=== PATIENT | female | born 2005 | race Caucasian/White ===

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

== ENCOUNTER 2025-01-01 21:45 | Emergency (ER) | payer OTHER ==
[~2025-01-01] VITALS: Ht 165.1 cm; Wt 113.4 kg
[~2025-01-01 21:45] MED LIST changes: +Phenergan25 MG PO
[2025-01-01] MEDS ORDERED: SODIUM CHLORIDE 0.9% 500 ML IV ONE (22:10)
[2025-01-01] MEDS ORDERED: Prochlorperazine Edisylate 10 MG/2 ML VIAL IV ONE (22:10)
[2025-01-01 22:46] LABS: BASO % 0.3 % (0.0-1.0); EOS # 0.1 10*3/uL (0.0-0.4); EOS % 1.1 % (1.0-4.0); HEMATOCRIT 44.8 % (37.0-47.0); MEAN CELL VOLUME 85.8 fl (81.0-99.0); MEAN CORPUSCULAR HGB 28.5 pg (27.0-31.0); MEAN CORPUSCULAR HGB CONC 33.3 g/dl (33.0-37.0); MEAN PLATELET VOLUME 11.1 fl (9.6-12.3); MONO # 0.7 10*3/uL (0.1-1.0); MONO % 6.5 % (3.0-9.0); NEUT # 7.1 10*3/uL (2.3-7.9); NEUT % 70.1 % (47.0-73.0); PLATELET COUNT AUTOMATED 230 10*3/uL (130-400); RED BLOOD COUNT 5.22 10*6/uL (4.10-5.10); RED CELL DISTRI WIDTH 13.3 % (0-14.5); WHITE BLOOD COUNT 10.1 10*3/uL (4.8-10.8)
[2025-01-01 22:55] LABS: BILIRUBIN 2+ (Negative); BLOOD 3+ (Negative); CLARITY Cloudy (Clear); COLOR Dark Yellow (Yellow); GLUCOSE Negative (Negative); KETONE Trace (Negative); LEUKO ESTERASE Trace (Negative); NITRITE Negative (Negative); PH 5.5 (4.5-8.0); SPECIFIC GRAVITY >= 1.030 (1.001-1.030)
[2025-01-01 23:02] LABS: URINE AMPHETAMINES Negative (1000ng/ml); URINE BARBITURATES Negative (200ng/ml); URINE BENZODIAZEPINES Negative (200ng/ml); URINE CANNABINOIDS (THC) Positive (50ng/ml); URINE COCAINE Negative (300ng/ml); URINE METHADONE Negative (300ng/ml); URINE OPIATES Negative (300ng/ml); URINE PHENCYCLIDINE Negative (25ng/ml)
[2025-01-01 23:11] LABS: ALKALINE PHOSPHATASE 59 U/L (46-116); BUN 13 mg/dl (9-23); CHLORIDE 103 mmol/L (98-107); POTASSIUM 2.9 mmol/L (3.4-5.1); SGPT/ALT 23 U/L (5-49); TOTAL PROTEIN 7.8 gm/dL (6.0-8.0)
[2025-01-01 23:17] LABS: EPITHELIAL CELLS 41-50
[2025-01-01 23:18] LABS: BACTERIA 2+; RBC 21-30 rbc/hpf (0-2)
[2025-01-01] MEDS ORDERED: POTASSIUM CHLORIDE 20 MEQ TAB PO ONE (23:20)
[2025-01-01] MEDS ORDERED: Ciprofloxacin Hydrochloride 500 MG TAB PO ONE (23:20)
== END 2025-01-01 23:32 | disposition home or self-care (01) ==
LOC: ED 21:45
PROVIDERS: Internal Medicine
DX: N39.0 Urinary tract infection, site not specified (principal); E87.6 Hypokalemia; Z20.822 Contact with and (suspected) exposure to COVID-19